=== PATIENT | male | born 1960 | race Caucasian/White ===

== ENCOUNTER → 2019-05-10 | Outpatient (CLI) | payer BC ==
[~2019-05-10] MED LIST: FENTANYL CITRATE/PF 100MCG/2 ML INJ ONE; MIDAZOLAM HCL 2 MG/2 ML VIAL ONE
[2019-05-10 09:26] LABS: HEMOGLOBIN 13.2 g/dL (14.0-18.0)
[2019-05-10 09:36] LABS: INR 0.93
[2019-05-10 09:37] LABS: PARTIAL THROMBOPLASTIN TIME 26.8 seconds (23.8-35.5)
--- NOTE | 2019-05-10 11:19 | Diagnostic Imaging Report ---
Ultrasound guided liver core biopsy. Clinical History: Hemachromatosis. Modality: Ultrasound. Sedation: Versed 1 mg and fentanyl 50 mcg intravenously for conscious sedation. Vital signs were monitored throughout the procedure by a nurse, and remained stable. Physician intra-service sedation time: 20 minutes. Labeling Associate: Noé Hargrove MD. Physics Instructor: None. Estimated Blood Loss: Less than 5 cc. Specimen: 3x 18-gauge core biopsy specimens, placed in formalin and sent to pathology. Technique: Informed consent was obtained. The risks of pain, bleeding, infection, injury to liver/adjacent structures, transfusion risks, moderate sedation risks, and adverse medication reactions were discussed with the patient. The right upper quadrant was prepped and draped in sterile fashion. The right lobe of the liver was selected for biopsy. 1% lidocaine was used for local anesthesia. Using ultrasound guidance, following acquisition appropriate images, a 17-gauge tissues are needle was advanced into the peripheral right hepatic lobe. 18-gauge core biopsy was used coaxially to obtain 3 core biopsy samples which were placed in formalin for pathology. The introducer needle was removed and Gelfoam slurry administered for tract embolization. Post procedure sonogram demonstrates no evidence of hematoma or other complication. A sterile dressing was applied. Impression: Successful and uncomplicated ultrasound guided core liver biopsy performed with conscious sedation. Signed by: Dr. Noé Hargrove MD on 05/10/2019 11:16 AM
== END ==
LOC: US 07:48
PROVIDERS: ATTEND Internal Medicine Gastroenterology
DX: E83.119 Hemochromatosis, unspecified (principal)
CPT/HCPCS: 36415; 47000; 76942; 85014; 85049; 85610; 85730; 88307; 88313; J2250; J3010; 99152